=== PATIENT | male | born 1990 | race Caucasian/White ===

== ENCOUNTER 2022-11-25 11:12 | Day surgery (SDC) | payer BC ==
[2022-11-17 15:39] VITALS: BMI 26.4
[2022-11-25] MEDS ORDERED: PROPOFOL 20 ML ONE (12:22)
[2022-11-25] MEDS ORDERED: MIDAZOLAM HCL 2 MG/2 ML SINGLE DOSE VIAL ONE (12:22)
[2022-11-25] MEDS ORDERED: ROPIVACAINE HCL 0.5% 30ML VIAL ONE (12:35)
[2022-11-25] MEDS ORDERED: ceFAZolin SODIUM 1 GM VIAL ONE ×2 (13:45)
[2022-11-25] MEDS ORDERED: DEXAMETHASONE SOD PHOSPHATE 4 MG/1 ML VIAL ONE (13:46)
[2022-11-25] MEDS ORDERED: ONDANSETRON 4 MG/2 ML VIAL ONE (13:46)
[2022-11-25] MEDS ORDERED: KETOROLAC TROMETHAMINE 30 MG/1 ML VIAL ONE (13:46)
[2022-11-25] MEDS ORDERED: oxyCODONE HCL 5 MG TABLET PO PRN (14:30)
[2022-11-25] MEDS ORDERED: ACETAMINOPHEN 325 MG TABLET (FP) PO PRN (14:30)
[2022-11-25] MEDS ORDERED: LACTATED RINGERS SOLUTION 1,000 ML IV SCH (14:30)
[2022-11-25 15:17] VITALS: PULSE 62; RESP 18; TEMP 97.8
[2022-11-25 15:53] VITALS: BP 116/65
== END 2022-11-25 16:00 | disposition home or self-care (01) ==
LOC: FASU 11:12
PROVIDERS: ATTEND Orthopaedic Surgery Hand Surgery
PROC: 0MQ54ZZ Repair Right Wrist Bursa and Ligament, Percutaneous Endoscopic Approach (ICD-10-PCS; principal; 2022-11-25 13:57)
DX: M24.131 Other articular cartilage disorders, right wrist (principal)
CPT/HCPCS: 94760